=== PATIENT | female | born 1975 | race Caucasian/White ===

== ENCOUNTER 2018-01-28 10:12 | Observation (INO) | payer BC, MEDICAID, OTHER, SELFPAY ==
[~2018-01-28] VITALS: Ht 175.3 cm; Wt 92.0 kg
[2018-01-28] MEDS ORDERED: SODIUM CHLORIDE 0.9% 1,000ML IVBOLUS ONE (11:00)
[2018-01-28] MEDS ORDERED: SODIUM CHLORIDE FLUSH 10ML SYR IVF ONE (11:00)
[2018-01-28] MEDS ORDERED: ASPIRIN 81 MG TABLET CHEW PO ONE ×3 (11:00→13:00)
[2018-01-28 11:25] LABS: BASOPHILS # (AUTO) 0.02 x10^3/uL (0-0.1); BASOPHILS % (AUTO) 0 % (0-1); EOSINOPHILS # (AUTO) 0.24 x10^3/uL (0-0.4); EOSINOPHILS % (AUTO) 2 % (1-7); LYMPHOCYTES # (AUTO) 2.22 x10^3/uL (1-3.4); LYMPHOCYTES % (AUTO) 20 % (22-44); MD NO; MEAN CORPUSCULAR HEMOGLOBIN 32.6 pg (27.0-34.8); MEAN CORPUSCULAR VOLUME 93.3 fL (80-100); MEAN PLATELET VOLUME 7.7 fL (7.4-10.4); MONOCYTES # (AUTO) 0.53 x10^3/uL (0.2-0.8); MONOCYTES % (AUTO) 5 % (2-9); NEUTROPHILS # (AUTO) 8.23 x10^3/uL (1.8-6.8); NEUTROPHILS % (AUTO) 73 % (42-75); PLATELET COUNT 393 x10^3/uL (130-400); RED BLOOD COUNT 4.98 x10^6/uL (3.82-5.3); RED CELL DISTRIBUTION WIDTH 13.6 % (9.6-15.2)
[2018-01-28] MEDS ORDERED: ASPIRIN 81 MG TABLET CHEW ONE (11:31)
[2018-01-28 11:37] LABS: ALANINE AMINOTRANSFERASE 31 U/L (12-78); ALBUMIN 3.8 g/dL (3.4-5.0); ANION GAP 9 mmol/L (5-15); CALCIUM 8.5 mg/dL (8.5-10.1); CHLORIDE 101 mmol/L (98-107); CREATININE 0.79 mg/dL (0.55-1.02)
[2018-01-28] MEDS ORDERED: METF-688 PO (11:41)
[2018-01-28] MEDS ORDERED: LISI1TAB7 PO (11:41)
[2018-01-28] MEDS ORDERED: ALBU18HF IH (11:41)
[2018-01-28] MEDS ORDERED: GABA600T2 PO (11:41)
[2018-01-28 11:42] LABS: ALKALINE PHOSPHATASE 89 U/L (45-117); BILIRUBIN,TOTAL 0.3 mg/dL (0.2-1.0); T4 (THYROXINE) 11.8 mcg/dL (4.8-13.9); TOTAL PROTEIN 8.1 g/dL (6.4-8.2); TROPONIN I < 0.015 ng/mL (0.000-0.045)
[2018-01-28] MEDS ORDERED: BREO INH (12:27)
[2018-01-28] MEDS ORDERED: GLI PO (12:27)
[2018-01-28] MEDS ORDERED: SODIUM CHLORIDE 0.9% 1,000 ML IV SCH (12:47)
[2018-01-28] MEDS ORDERED: morphine SULFATE 10 MG/ML, 1ML IVPush PRN (13:00)
[2018-01-28] MEDS ORDERED: NITROGLYCERIN 0.4 MG BOTTLE (25 TABS) SL PRN (13:00)
[2018-01-28] MEDS ORDERED: ONDANSETRON 2MG/ML, 2ML IVPush PRN (13:00)
[2018-01-28] MEDS ORDERED: ENOXAPARIN 40 MG/0.4 ML SQ SCH (13:00)
[2018-01-28] MEDS ORDERED: MAGNESIUM SULFATE PMX 2GM/50ML 50 ML IV ONE (13:30)
[2018-01-28 13:35] LABS: HEMOGLOBIN A1C 6.8 % (4.2-6.3)
[2018-01-28] MEDS ORDERED: ENOXAPARIN 40 MG/0.4 ML ONE (13:36)
[2018-01-28 13:44] LABS: TROPONIN I < 0.015 ng/mL (0.000-0.045)
[2018-01-28 14:35] VITALS: BP 112/77
[2018-01-28] MEDS ORDERED: NICOTINE 7 MG/24 HR PATCH.TD24 ONE (14:52)
[2018-01-28] MEDS ORDERED: NICOTINE 7 MG/24 HR PATCH.TD24 TD SCH (15:00)
[2018-01-28] MEDS ORDERED: INSULIN LISPRO 100 UNITS/ML, PEN SQ-INSULIN SCH (16:00)
[2018-01-28] MEDS ORDERED: ATORVASTATIN 80 MG TABLET PO SCH (21:00)
== END 2018-01-28 15:40 | disposition left against medical advice (07) ==
LOC: ED 11:32 → EDIP 12:19 → 5SO 14:48
PROVIDERS: ADMIT Internal Medicine; ATTEND Internal Medicine
DX: R07.89 Other chest pain (principal); D72.829 Elevated white blood cell count, unspecified; E11.9 Type 2 diabetes mellitus without complications; E78.5 Hyperlipidemia, unspecified; E83.42 Hypomagnesemia; E87.1 Hypo-osmolality and hyponatremia; F41.1 Generalized anxiety disorder; I10 Essential (primary) hypertension; F17.200 Nicotine dependence, unspecified, uncomplicated; Z82.49 Family history of ischemic heart disease and other diseases of the circulatory system
CPT/HCPCS: 36415; 71045; 80053; 83036; 83735; 83880; 84436; 84443; 84484; 85025; 85379; 93005; 96372; 99285; G0378; J1650; J7030